=== PATIENT | female | born 1960 | race Caucasian/White ===

== ENCOUNTER 2017-06-19 15:39 | Emergency (ER) | payer BC ==
[~2017-06-19] VITALS: Ht 152.4 cm; Wt 97.6 kg
[2017-06-19 15:47] VITALS: BP 133/66
== END 2017-06-19 17:35 | disposition home or self-care (01) ==
LOC: ED 15:39
DX: S62.102A Fracture of unspecified carpal bone, left wrist, initial encounter for closed fracture (principal); K21.9 Gastro-esophageal reflux disease without esophagitis; I10 Essential (primary) hypertension; W17.89XA Other fall from one level to another, initial encounter; Y93.89 Activity, other specified; Y99.8 Other external cause status; Y92.89 Other specified places as the place of occurrence of the external cause